=== PATIENT | male | born 1935 | race Caucasian/White ===

== ENCOUNTER 2016-07-30 14:05 | Emergency (ER) | payer MEDICARE, BC ==
[2016-07-30 14:20] VITALS: BP 153/73
--- NOTE | 2016-07-30 15:04 | EDM.PDOC ---
ED HISTORY OF PRESENT ILLNESS - General Chief Complaint: Chest Pain Stated Complaint: CHEST PAIN Time Seen by Provider: 07/30/16 14:45 Source: Reports: Patient, Family, RN notes reviewed History Limitations: Reports: No limitations - History of Present Illness INITIAL COMMENTS - FREE TEXT/NARRATIVE: 81-year-old gentleman presents emergency department day complaint of chest pain , he states his had chest pain for about a week he has been cutting wood chest pain is unique in that he is chest pain-free with exertion however pain will come on at rest he has no pain while sleeping denies any nausea vomiting shortness of breath or diaphoresis - Related Data Allergies/ADRs: Allergies Allergy/AdvReac Type Severity Reaction Status Date / Time No Known Allergies Allergy Verified 07/30/16 14:21 Home Meds: Home Meds Amoxicillin 4 cap PO ASDIRECTED 07/30/16 [History] Aspirin [Halfprin] 81 mg PO DAILY 07/30/16 [History] Ferrous Sulfate 4 tab PO WEEKLY 07/30/16 [History] Insulin Aspart [NovoLOG] 9 units SQ DAILY 07/30/16 [History] Insulin Glargine,Hum.Rec.Anlog [Lantus Solostar] 15 units SQ BEDTIME 07/30/16 [ History] Lisinopril 40 mg PO DAILY 07/30/16 [History] Metoprolol Tartrate [Metoprolol Tartrate] 1 tab PO DAILY 07/30/16 [History] Simvastatin [Zocor] 40 mg PO DAILY 07/30/16 [History] amLODIPine [Norvasc] 10 mg PO DAILY 07/30/16 [History] metFORMIN [Glucophage] 850 mg PO BID 07/30/16 [History] Past Medical History HEENT History: Reports: Cataract, Hard of hearing Cardiovascular History: Reports: High cholesterol, Hypertension, Other (see below) Other Cardiovascular History: ischemic heart disease, hyperlipidemia Endocrine/Metabolic History: Reports: Diabetes, type II Hematologic History: Reports: Blood transfusion(s) - Infectious Disease History Infectious Disease History: Reports: Measles, Mumps - Past Surgical History Cardiovascular Surgical History: Reports: Other (see below) Other Cardiovascular Surgeries/Procedures: angioplasty Musculoskeletal Surgical History: Reports: Knee replacement Social & Family History - Tobacco Use Smoking Status *Q: Former Smoker Used Tobacco, but Quit: Yes Month Tobacco Last Used: 1979 - Caffeine Use Caffeine Use: Reports: Coffee - Recreational Drug Use Recreational Drug Use: No ED ROS GENERAL - Review of Systems Review Of Systems: See Below Constitutional: Reports: no symptoms HEENT: Reports: No symptoms Respiratory: Reports: No Symptoms Cardiovascular: Reports: Chest pain. Denies: Dyspnea on exertion GI/Abdominal: Reports: No symptoms : Reports: no symptoms Musculoskeletal: Reports: no symptoms Skin: Reports: no symptoms ED EXAM, GENERAL - Physical Exam Exam: See Below Free Text/Narrative:: General: Elderly male, not in any distress, alert and oriented x3 HEENT: head is atraumatic normocephalic, eyes pupils equal round reactive to light, sclera clear no conjunctivitis appreciated. Ears hearing aids in place bilaterally. Nose no septal deviation, nares are clear, no blood present. Mouth mucosa is moist and pink no erythema or exudate noted in soft palate, tongue is midline uvula is midline, dentition is intact. Neck: Supple no thyromegaly no tracheal deviation. Nodes: Cervical nodes subclavicular nodes nontender no palpable lymphadenopathy noted. Lungs: clear to auscultation bilaterally with symmetrical respirations, no adventitious noise appreciated. CV: Regular rate and rhythm S1 and S2 appreciated no murmurs rubs or gallops noted. Abdomen: Soft, nontender, no palpable masses or organomegaly appreciated, no distention no guarding bowel sounds are present, . Neuro: Cranial nerves II through XII grossly intact Skin: Warm and dry, intact Extremities: No lower extremity edema appreciated, Course - Vital Signs Last Recorded V/S: Last Vital Signs Temp 98.1 F 07/30/16 14:24 Pulse 71 07/30/16 14:24 Resp 15 07/30/16 14:24 BP 153/73 H 07/30/16 14:24 Pulse Ox 95 07/30/16 14:24 - Orders/Labs/Meds Orders: Active Orders 24 hr Category Date Time Status Cardiac Monitoring [RC] .As Directed Care 07/30/16 15:02 Active EKG Documentation Completion [RC] ASDIRECTED Care 07/30/16 15:02 Active Chest 2V [CR] Stat Exams 07/30/16 15:02 Taken EKG 12 Lead [EK] Stat Ther 07/30/16 15:02 Ordered Labs: Laboratory Tests 07/30/16 07/30/16 Range/Units 15:20 15:20 WBC 9.3 (4.5-11.0) K/uL RBC 4.16 L (4.30-5.90) M/uL Hgb 13.0 (12.0-15.0) g/dL Hct 38.1 L (40.0-54.0) % MCV 92 (80-98) fL MCH 31 (27-31) pg MCHC 34 (32-36) % Plt Count 200 (150-400) K/uL Neut % (Auto) 57 (36-66) % Lymph % (Auto) 25 (24-44) % [place] % (Auto) 10 H (2-6) % Eos % (Auto) 6 H (2-4) % Baso % (Auto) 2 H (0-1) % Sodium 141 (140-148) mmol/L Potassium 5.8 H (3.6-5.2) mmol/L Chloride 109 H (100-108) mmol/L Carbon Dioxide 24 (21-32) mmol/L Anion Gap 13.8 (5.0-14.0) mmol/L BUN 39 H (7-18) mg/dL Creatinine 1.8 H (0.8-1.3) mg/dL Est Cr Clr Drug Dosing 32.11 mL/min Estimated GFR (MDRD) 36 L (>60) Glucose 213 H (74-106) mg/dL Calcium 8.8 (8.5-10.1) mg/dL Total Bilirubin 0.3 (0.2-1.0) mg/dL AST 29 (15-37) U/L ALT 57 (12-78) U/L Alkaline Phosphatase 90 (46-116) U/L Troponin I < 0.017 (0.000-0.056) ng/mL Total Protein 7.7 (6.4-8.2) g/dL Albumin 3.6 (3.4-5.0) g/dL Globulin 4.1 H (2.3-3.5) g/dL Albumin/Globulin Ratio 0.9 L (1.2-2.2) Departure - Departure Time of Disposition: 16:22 Disposition: Home, Self-Care 01 Condition: good Clinical Impression: Atypical chest pain, Hyperkalemia Forms: ED Department Discharge Additional Instructions: Take the Lasix one tablet once a day for the next 3 days please followup with your primary care provider in the next 3-4 days - My Orders Last 24 Hours: My Active Orders 07/30/16 15:02 Cardiac Monitoring [RC] .As Directed EKG Documentation Completion [RC] ASDIRECTED Chest 2V [CR] Stat EKG 12 Lead [EK] Stat - Assessment/Plan Last 24 Hours: My Active Orders 07/30/16 15:02 Cardiac Monitoring [RC] .As Directed EKG Documentation Completion [RC] ASDIRECTED Chest 2V [CR] Stat EKG 12 Lead [EK] Stat Plan: Assessment Acuity = acute Site and laterality = atypical chest pain complicated in a patient with known history of coronary artery disease Etiology = chest pain is probably related to musculoskeletal do to his recent splitting wood Manifestations = none Location of injury = home Lab values = CBC unremarkable potassium elevated at 5.8 consistent hyperkalemia creatinine elevated at 1.8 consistent with chronic renal failure stage GIIIB, troponin negative chest x-ray unremarkable EKG demonstrates a sinus rhythm no ST changes JACINTA score is 2 his heart score is 4 Plan Because of his hyperkalemia am going to give him 3 days of Lasix 20 mg once a day because of his elevated creatinine he remains on combination metformin and insulin both short-term and long acting that from a stop his metformin I did discuss case with his primary care he is to follow up with him in a couple of days recheck his potassium and further evaluation Patient was in agreement with the plan all questions were answered, they were instructed to return to the emergency department or call for worsening symptoms. This note was dictated using [employer] voice recognition software please call with any questions.
--- NOTE | 2016-07-31 09:22 | CR ---
Heart size within normal limits. No focal consolidation. 8 mm nodular density right lung base. This is faint. Difficult to exclude a small pulmonary nodule. Recommend comparison to prior studies or CT . Additionally, difficult to exclude a nodular density on the lateral view posteriorly as well up to 14 mm.
== END 2016-07-30 16:31 | disposition home or self-care (01) ==
LOC: JP.ED 14:05
DX: R07.89 Other chest pain (principal); E87.6 Hypokalemia; I10 Essential (primary) hypertension; E78.00 Pure hypercholesterolemia, unspecified; E11.9 Type 2 diabetes mellitus without complications; Z96.659 Presence of unspecified artificial knee joint; Z95.5 Presence of coronary angioplasty implant and graft; Z79.82 Long term (current) use of aspirin; Z79.4 Long term (current) use of insulin; Z79.899 Other long term (current) drug therapy; Z87.891 Personal history of nicotine dependence
CPT/HCPCS: 36415; 71020; 71020-26; 80053; 84484; 85025; 93005; 93010; 99284; 99285-25

== ENCOUNTER 2019-05-25 21:04 | Emergency (ER) | payer MEDICARE, BC ==
--- NOTE | 2019-05-25 21:46 | EDM.PDOC ---
ED HPI GENERAL MEDICAL PROBLEM - General Chief Complaint: General Stated Complaint: STOMACH PAIN Time Seen by Provider: 05/25/19 21:34 Source of Information: Reports: Patient, EMS, Family, RN Notes Reviewed History Limitations: Reports: No Limitations - History of Present Illness INITIAL COMMENTS - FREE TEXT/NARRATIVE: 84-year-old gentleman presents emergency department today following syncopal event. He has been dealing with some diarrhea for the last week or so does have follow-up appointment with his primary care on Friday of next week he has been evaluated by his primary care for the diarrhea. He states that earlier today while he was having a bowel movement he tried to push really hard to help get some of the diarrhea out while he was bearing down he had a syncopal event and a period of unresponsiveness per his family member while he was lying on the floor EMS services were called by the time they arrived he was arousable and communicative however he was bradycardic, diaphoretic and hypotensive. At this time he feels back to his normal self no nausea vomiting diaphoresis has resolved, chest pain shortness of breath - Related Data Allergies Allergy/AdvReac Type Severity Reaction Status Date / Time No Known Allergies Allergy Verified 05/25/19 21:19 Home Meds: Home Meds Aspirin [Halfprin] 81 mg PO DAILY 07/30/16 [History] Ferrous Sulfate 4 tab PO WEEKLY 07/30/16 [History] Insulin Aspart [NovoLOG] 9 units SQ DAILY 07/30/16 [History] Insulin Glargine,Hum.Rec.Anlog [Lantus Solostar] 15 units SQ BEDTIME 07/30/16 [ History] Lisinopril 40 mg PO DAILY 07/30/16 [History] Metoprolol Tartrate 1 tab PO DAILY 07/30/16 [History] Simvastatin [Zocor] 40 mg PO DAILY 07/30/16 [History] amLODIPine [Norvasc] 10 mg PO DAILY 07/30/16 [History] metFORMIN [Glucophage] 850 mg PO BID 07/30/16 [History] Past Medical History HEENT History: Reports: Cataract, Hard of Hearing Cardiovascular History: Reports: CAD, High Cholesterol, Hypertension, Other ( See Below) Gastrointestinal History: Reports: Chronic Diarrhea, Gastritis, GERD Endocrine/Metabolic History: Reports: Diabetes, Type II Hematologic History: Reports: Blood Transfusion(s) - Infectious Disease History Infectious Disease History: Reports: Chicken Pox, Measles, Mumps - Past Surgical History Cardiovascular Surgical History: Reports: Other (See Below) Musculoskeletal Surgical History: Reports: Knee Replacement Social & Family History - Tobacco Use Smoking Status *Q: Former Smoker Used Tobacco, but Quit: Yes Month/Year Tobacco Last Used: 03/1989 - Caffeine Use Caffeine Use: Reports: Coffee Caffeine Use Comment: occasional coffee use - Recreational Drug Use Recreational Drug Use: No ED ROS GENERAL - Review of Systems Review Of Systems: See Below Constitutional: Reports: Diaphoresis HEENT: Reports: No Symptoms Respiratory: Reports: No Symptoms Cardiovascular: Reports: Syncope GI/Abdominal: Reports: No Symptoms : Reports: No Symptoms Musculoskeletal: Reports: No Symptoms ED EXAM, GENERAL - Physical Exam Exam: See Below Exam Limited By: No Limitations General Appearance: Alert, WD/WN, No Apparent Distress Respiratory/Chest: No Respiratory Distress, Lungs Clear, Normal Breath Sounds, No Accessory Muscle Use, Chest Non-Tender Cardiovascular: Regular Rate, Rhythm, No Murmur GI/Abdominal: Soft, Non-Tender Back Exam: Normal Inspection, Full Range of Motion. No: CVA Tenderness (R), CVA Tenderness (L) Extremities: Normal Inspection, No Pedal Edema Course - Vital Signs Last Recorded V/S: Last Vital Signs Temp 97.4 F 05/25/19 21:19 Pulse 60 05/25/19 22:17 Resp 16 05/25/19 22:17 BP 175/63 H 05/25/19 22:17 Pulse Ox 97 05/25/19 22:17 - Orders/Labs/Meds Orders: Active Orders 24 hr Category Date Time Status EKG Documentation Completion [RC] ASDIRECTED Care 05/25/19 21:41 Active EKG 12 Lead [EK] Stat Ther 05/25/19 21:41 Ordered Labs: Laboratory Tests 05/25/19 05/25/19 05/25/19 Range/Units 22:00 22:00 22:00 WBC 11.3 H (4.5-11.0) K/uL RBC 3.94 L (4.30-5.90) M/uL Hgb 11.9 L (12.0-15.0) g/dL Hct 36.1 L (40.0-54.0) % MCV 92 (80-98) fL MCH 30 (27-31) pg MCHC 33 (32-36) % Plt Count 179 (150-400) K/uL Neut % (Auto) 67 H (36-66) % Lymph % (Auto) 17 L (24-44) % [place] % (Auto) 10 H (2-6) % Eos % (Auto) 6 H (2-4) % Baso % (Auto) 1 (0-1) % Sodium 143 (140-148) mmol/L Potassium 5.4 H (3.6-5.2) mmol/L Chloride 109 H (100-108) mmol/L Carbon Dioxide 23 (21-32) mmol/L Anion Gap 16.4 H (5.0-14.0) mmol/L BUN 44 H (7-18) mg/dL Creatinine 2.2 H (0.8-1.3) mg/dL Est Cr Clr Drug Dosing 25.67 mL/min Estimated GFR (MDRD) 29 L (>60) Glucose 162 H (74-106) mg/dL Calcium 9.0 (8.5-10.1) mg/dL Troponin I < 0.017 (0.000-0.056) ng/mL Departure - Departure Time of Disposition: 22:46 Disposition: Home, Self-Care 01 Condition: Fair Clinical Impression: Vasovagal syncope - Discharge Information Referrals: Alex Sims MD [Primary Care Provider] - Forms: ED Department Discharge Additional Instructions: Continue with your regular medications, please keep your follow-up appointment with your primary care on Friday Sepsis Event Note - Evaluation Sepsis Screening Result: No Definite Risk - Focused Exam Vital Signs: Vital Signs Temp Pulse Resp BP Pulse Ox 05/25/19 22:17 60 16 175/63 H 97 05/25/19 21:53 59 L 14 165/70 H 97 05/25/19 21:19 97.4 F 60 16 169/50 H 96 05/25/19 21:16 97.4 F 60 16 169/50 H 96 Date Exam was Performed: 05/25/19 Time Exam was Performed: 22:44 - My Orders Last 24 Hours: My Active Orders 05/25/19 21:41 EKG Documentation Completion [RC] ASDIRECTED EKG 12 Lead [EK] Stat - Assessment/Plan Last 24 Hours: My Active Orders 05/25/19 21:41 EKG Documentation Completion [RC] ASDIRECTED EKG 12 Lead [EK] Stat Plan: Assessment Acuity = acute Site and laterality = syncopal event Etiology = vasovagal Manifestations = none Location of injury = Home Lab values = EKG demonstrates sinus rhythm with first-degree block CBC unremarkable potassium slightly elevated 5.4 consistent hyperkalemia creatinine elevated 2.2 consistent with chronic renal failure stage G4 troponin was negative Plan I did review lab work with him he does have follow-up appointment with his primary care on Friday recommend consultation with nephrology This note was dictated using [employer] voice recognition software please call with any questions on syntax or grammar.
[2019-05-25 23:05] VITALS: BP 182/74; PULSE 65
== END 2019-05-25 23:14 | disposition home or self-care (01) ==
LOC: JP.ED 21:04
DX: R55 Syncope and collapse (principal); I10 Essential (primary) hypertension; E11.9 Type 2 diabetes mellitus without complications; I25.10 Atherosclerotic heart disease of native coronary artery without angina pectoris; E78.00 Pure hypercholesterolemia, unspecified; Z87.891 Personal history of nicotine dependence; Z79.4 Long term (current) use of insulin; Z79.82 Long term (current) use of aspirin; Z79.899 Other long term (current) drug therapy
CPT/HCPCS: 36415; 80048; 84484; 85025; 93005; 93010; 99283; 99284-25